=== PATIENT | female | born 1990 | race Caucasian/White ===

== ENCOUNTER 2017-03-06 12:43 | Emergency (ER) | payer BC ==
[2017-03-06 13:00] VITALS: BP 122/70
--- NOTE | 2017-03-06 13:51 | RAD ---
Indication: Pain in the right fifth distal metacarpal. 2 views of the right hand demonstrates no fracture. No other bone or joint abnormality is noted. IMPRESSION: No fracture of the right hand is noted.
--- NOTE | 2017-03-06 14:04 | UC ---
Hand/Wrist HPI - HPI Summary HPI Summary: pt c/o right handknuckle pain that began 3-4 weeksa go. Pt states that she injured rigth hand and now notices that the affected area continues to tender and bruised - History Of Current Complaint Chief Complaint: UCUpperExtremity Stated Complaint: RT KNUCKLES Time Seen by Provider: 03/06/17 13:30 Hx Obtained From: Patient Hx Last Menstrual Period: 02/11/17 ?: No Onset/Duration: Sudden Onset, Lasting Weeks, Still Present Severity Initially: Mild Severity Currently: Mild Character Of Pain: Dull, Aching Aggravating Factor(s): Movement Alleviating Factor(s): Rest Associated Signs And Symptoms: Positive: Bruising Related History: Dominant Hand Right - Risk Factors Compartment Syndrome Risk Factors: Pain - Allergies/Home Medications Allergies/Adverse Reactions: Allergies Allergy/AdvReac Type Severity Reaction Status Date / Time No Known Allergies Allergy Verified 03/06/17 12:54 Home Medications: Home Medications Bcp 1 tab PO DAILY 03/06/17 [History] PMH/Surg Hx/FS Hx/Imm Hx Previously Healthy: Yes - Surgical History Surgical History: None - Family History Known Family History: Positive: Cardiac Disease - Social History Occupation: Employed Full-time Lives: With Family Alcohol Use: Occasionally Substance Use Type: None Smoking Status (MU): Never Smoked Tobacco Have You Smoked in the Last Year: No Review of Systems Constitutional: Negative Skin: Bruising Eyes: Negative ENT: Negative Respiratory: Negative Cardiovascular: Negative Gastrointestinal: Negative Genitourinary: Negative Motor: Negative Neurovascular: Negative Musculoskeletal: Arthralgia Neurological: Negative Psychological: Negative Is Patient Immunocompromised?: No All Other Systems Reviewed And Are Negative: Yes Physical Exam Triage Information Reviewed: Yes Appearance: Well-Appearing Vital Signs: Initial Vital Signs Temp 98.4 F 03/06/17 12:56 Pulse 78 03/06/17 12:56 Resp 16 03/06/17 12:56 BP 122/70 03/06/17 12:56 Eye Exam: Normal ENT Exam: Normal Dental Exam: Normal Neck exam: Normal Respiratory Exam: Normal Musculoskeletal Exam: Other Musculoskeletal: Positive: Other: - brusing right distal 5th metacarpal Neurological Exam: Normal Psychological Exam: Normal Skin: Positive: Other - right 5th distal metacarpal Hand/Wrist Course/Dx - Course Course Of Treatment: xray: MPRESSION: No fracture of the right hand is noted. - Differential Dx/Diagnosis Differential Diagnosis/HQI/PQRI: Contusion, Other - arthritis Provider Diagnoses: arthritis. contusion Discharge - Discharge Plan Condition: Stable Disposition: HOME Patient Education Materials: Arthralgia (ED) Referrals: Krysta Henry MD [Primary Care Provider] - Carline Adorno MD [Medical Doctor] - If Needed Additional Instructions: xray: MPRESSION: No fracture of the right hand is noted.
== END 2017-03-06 14:07 | disposition home or self-care (01) ==
LOC: UCCORT 12:43
DX: M19.90 Unspecified osteoarthritis, unspecified site (principal); S60.221A Contusion of right hand, initial encounter; X58.XXXA Exposure to other specified factors, initial encounter; Y92.9 Unspecified place or not applicable
CPT/HCPCS: 99201; G0463